=== PATIENT | male | born 1995 | race Caucasian/White ===

== ENCOUNTER 2020-10-30 15:12 | Emergency (ER) | payer SELFPAY ==
[2020-10-30] MEDS ORDERED: Ibuprofen 400 MG TAB ONE (16:42)
== END 2020-10-30 16:35 | disposition home or self-care (01) ==
LOC: MADERS 15:12
DX: J02.9 Acute pharyngitis, unspecified (principal); R14.0 Abdominal distension (gaseous); F17.210 Nicotine dependence, cigarettes, uncomplicated
CPT/HCPCS: 87081; 87430; 99283